=== PATIENT | male | born 1965 | race Caucasian/White ===

== ENCOUNTER 2018-09-07 07:46 | Day surgery (SDC) | payer OTHER ==
[2018-09-02 15:26] VITALS: BMI 25.1
[2018-09-07 08:07] VITALS: TEMP 97.5
[2018-09-07] MEDS ORDERED: PROPOFOL 20 ML ONE ×2 (08:28)
[2018-09-07 09:31] VITALS: BP 100/64; PULSE 60
== END 2018-09-07 09:40 | disposition home or self-care (01) ==
LOC: FASU-ENDO 07:46
PROVIDERS: ATTEND Internal Medicine Gastroenterology
PROC: 0DJD8ZZ Inspection of Lower Intestinal Tract, Via Natural or Artificial Opening Endoscopic (ICD-10-PCS; principal; 2018-09-07 08:50)
DX: Z12.11 Encounter for screening for malignant neoplasm of colon (principal); Z80.0 Family history of malignant neoplasm of digestive organs; K57.30 Diverticulosis of large intestine without perforation or abscess without bleeding